=== PATIENT | female | born 1960 | race Caucasian/White ===

== ENCOUNTER 2023-01-05 14:48 | Outpatient (CLI) | payer OTHER, SELFPAY ==
--- NOTE | 2023-01-05 15:00 | CRLHL7_ITS ---
For Patients: As a result of the Cures Act, medical imaging exams and procedure reports are released immediately into your electronic medical record. You may view this report before your referring provider. If you have questions, please contact your health care provider. BILATERAL DIGITAL SCREENING MAMMOGRAM WITH COMPUTER-AIDED DETECTION AND TOMOSYNTHESIS CLINICAL HISTORY: Routine screening exam. COMPARISON: 12/07/2021, 11/16/2020, 10/30/2019. TECHNIQUE: Digital mammogram in CC and MLO projections including computer-aided detection (CAD) and tomosynthesis. BREAST COMPOSITION: The breasts are heterogeneously dense, which may obscure small masses FINDINGS: RIGHT Breast: Focal asymmetric density in the upper-outer quadrant 5 cm from the nipple. LEFT Breast: No suspicious findings. IMPRESSION: RIGHT breast asymmetry/mass. RECOMMENDATIONS: Additional mammographic views of the RIGHT breast including 3D spot compression CC/MLO. RIGHT breast ultrasound may also be required. The [facility] will contact the patient for follow-up. A lay language report of this examination will be provided to the patient. BI-RADS Category 0: Incomplete: Need Additional Imaging Evaluation and/or Prior Mammograms for Comparison Dictated by He Valenzuela MD @ 01/08/2023 12:13:35 PM/arnoldo RAVI/Dictated by: He Valenzuela MD @ 01/08/2023 12:13:00 PM RAVI/Dictated by: He Valenzuela MD @ 01/08/2023 12:13:00 PM (Electronically Signed)
== END 2023-01-05 14:49 | disposition home or self-care (01) ==
LOC: MAMMO 14:50
PROVIDERS: PCP Internal Medicine; Visit Provider Internal Medicine
DX: Z12.31 Encounter for screening mammogram for malignant neoplasm of breast (principal); R92.2 Inconclusive mammogram; N63.10 Unspecified lump in the right breast, unspecified quadrant
CPT/HCPCS: 77063; 77067

== ENCOUNTER 2023-01-16 09:30 | Outpatient (CLI) | payer OTHER, SELFPAY ==
--- NOTE | 2023-01-16 09:45 | CRLHL7_ITS ---
For Patients: As a result of the Cures Act, medical imaging exams and procedure reports are released immediately into your electronic medical record. You may view this report before your referring provider. If you have questions, please contact your health care provider. DIGITAL DIAGNOSTIC RIGHT MAMMOGRAM USING TOMOSYNTHESIS AND COMPUTER-AIDED DETECTION RIGHT BREAST ULTRASOUND INDICATION: Follow-up a focal asymmetric density upper outer RIGHT breast 5 cm from the nipple. TECHNIQUE: Spot compression view of the RIGHT breast in the CC and MLO projection. Tomosynthesis and CAD utilized. COMPARISON: 01/05/2023. FINDINGS: Breast Composition: The breast is heterogeneously dense, which may obscure small masses. Benign calcifications. No definite underlying mass. Given the density of breast tissue, and ultrasound is recommended and will be performed subsequently. IMPRESSION: Dense breast tissue without an obvious mass. Ultrasound follow-up is recommended. Directed RIGHT breast ultrasound with this radiologist present. ULTRASOUND FINDINGS: The RIGHT breast is carefully scanned at the 10 o`clock position 5-6 cm from the nipple. Only normal dense breast tissue is identified. No underlying mass. No areas of shadowing or distortion. IMPRESSION: Negative directed RIGHT breast ultrasound. Annual mammography is recommended. BI-RADS Category 1: Negative A lay language report of this examination will be provided to the patient. Dictated by: Juan R Cortes MD @01/16/2023 11:34:10 AM /Dictated by: Juan R Cortes MD @ 01/16/2023 11:33:00 AM (Electronically Signed)
--- NOTE | 2023-01-16 10:15 | CRLHL7_ITS ---
For Patients: As a result of the Cures Act, medical imaging exams and procedure reports are released immediately into your electronic medical record. You may view this report before your referring provider. If you have questions, please contact your health care provider. PLEASE SEE DIGITAL DIAGNOSTIC RIGHT MAMMOGRAM PERFORMED SAME DAY CRL:kyree adorno/Dictated by: Juan R Cortes MD @ 01/16/2023 11:33:00 AM (Electronically Signed)
== END 2023-01-16 09:31 | disposition home or self-care (01) ==
LOC: MAMMO 09:31
PROVIDERS: PCP Internal Medicine; Visit Provider Internal Medicine
DX: N63.11 Unspecified lump in the right breast, upper outer quadrant (principal); R92.8 Other abnormal and inconclusive findings on diagnostic imaging of breast
CPT/HCPCS: 76642; 77065; G0279

== ENCOUNTER 2024-02-19 15:27 | Outpatient (CLI) | payer OTHER, SELFPAY ==
--- NOTE | 2024-02-19 15:40 | MM_ITS ---
Patient: JERMAIN MEDINA Facility:?[facility] Patient ID:?[id number] Site Patient ID:?[id number]. Site :?[id number] Study:?XRay-Breast Bilateral 3D screening mammogram w/cad-02/19/2024 3:57:32 PM Ordering Physician:SUGAR Final Report: BILATERAL SCREENING MAMMOGRAM WITH COMPUTER-AIDED DETECTION AND TOMOSYNTHESIS TECHNIQUE: CC and MLO views were obtained. These mammographic images have been obtained using full-field digital technique. These mammographic images were interpreted with the benefit of computer-aided detection. Breast Tomosynthesis was used in this interpretation. COMPARISON FILM: 01/05/23, 12/07/21, 01/17/20. FINDINGS: There are scattered areas of fibroglandular density. IMPRESSION: There is no radiographic evidence for malignancy. ASSESSMENT: BI-RADS Category 1: Negative RECOMMENDATION: Routine screening mammogram in 1 year. A lay language report of this examination will be provided to the patient. He Valenzuela M.D. Diagnostic Radiologist [email or web address] DSM/sp R& Transcribed: 4:15 p.m. SP/Dictated by: He Valenzuela MD @ 02/22/2024 12:36:00 PM Signed by:Taya Valenzuela MD @02/22/2024 4:21:40 PM (Electronic Signature)
== END 2024-02-19 15:28 | disposition home or self-care (01) ==
LOC: MAMMO 15:28
PROVIDERS: PCP Internal Medicine; Visit Provider Internal Medicine
DX: Z12.31 Encounter for screening mammogram for malignant neoplasm of breast (principal)
CPT/HCPCS: 77063; 77067

== ENCOUNTER 2025-04-16 13:51 | Outpatient (CLI) | payer OTHER, SELFPAY ==
--- NOTE | 2025-04-16 14:00 | CRLHL7_ITS ---
For Patients: As a result of the Century Cures Act, medical imaging exams and procedure reports are released immediately into your electronic medical record. You may view this report before your referring provider. If you have questions, please contact your health care provider. INDICATION: BILATERAL SCREENING MAMMOGRAM, ASYMPTOMATIC 65 Y/O FEMALE COMPARISON: 02/19/2024, 01/05/2023, 12/07/2021 TECHNIQUE: Digital mammogram in CC and MLO projections including computer-aided detection (CAD) and tomosynthesis. BREAST COMPOSITION: The breasts are heterogeneously dense, which may obscure small masses. FINDINGS: No suspicious findings. ASSESSMENT: BI-RADS 2 Benign RECOMMENDATION: Annual screening mammogram. A lay language report of this examination will be provided to the patient. Dictated by: He Valenzuela MD @ 04/17/2025 13:08:25 (Electronically Signed)
== END 2025-04-16 13:52 | disposition home or self-care (01) ==
LOC: MAMMO 13:52
PROVIDERS: PCP Internal Medicine; Visit Provider Internal Medicine
DX: Z12.31 Encounter for screening mammogram for malignant neoplasm of breast (principal); R92.333 Mammographic heterogeneous density, bilateral breasts
CPT/HCPCS: 77063; 77067

== ENCOUNTER 2025-04-21 08:48 | Outpatient (CLI) | payer OTHER, SELFPAY | END 2025-04-21 08:49 | disposition home or self-care (01) | LOC: NFLDREF 04-23 14:45 | PROVIDERS: PCP Internal Medicine; Referring Provider Internal Medicine; Visit Provider Internal Medicine | DX: Z13.1 Encounter for screening for diabetes mellitus (principal); Z13.6 Encounter for screening for cardiovascular disorders | CPT/HCPCS: 80061; 82947 ==